=== PATIENT | female | born 1955 | race Caucasian/White ===

== ENCOUNTER 2017-04-25 10:49 | Inpatient (IN) | payer OTHER ==
[~2017-04-25] VITALS: Ht 177.8 cm; Wt 94.9 kg
--- NOTE | ~2017-04-25 | PR ---
[place], [place] PROGRESS NOTE NAME: EDUARD BATISTA UNIT #: [id number] ROOM: 409 DOCTOR: DEVON SHOOK DO BIRTHDATE: [birth year] DOS: 05/01/2017 SUBJECTIVE: The patient offers no complaints today other than discomfort in her IV site. She notes her appetite is good. Denies any nausea, vomiting, diarrhea or dyspnea. PHYSICAL EXAMINATION: VITAL SIGNS: Blood pressure is 120/69, pulse is 117, respirations 20, temperature is 98.6 degrees. GENERAL APPEARANCE: An obese female, awake, alert, no apparent distress. LUNGS: Clear to auscultation and percussion. HEART: With S1, S2, without murmur or heave. ABDOMEN: Soft, positive bowel sounds x 4. EXTREMITIES: No clubbing, cyanosis, no edema noted. LABORATORY DATA: Sodium is 129, potassium 3.5, chloride 91, CO2 25, BUN 19, creatinine 1.30, glucose 138, calcium is 8.6. WBCs are 5.2, hemoglobin 11.6, hematocrit 34.4, platelets are 242,000, a.m. cortisol from April 30 is pending. Cortrosyn stimulation test from today is pending. PROBLEM: 1. Hyponatremia, relatively stable of unclear etiology, negative workup today with several studies pending. Volume status currently appears to be satisfactory. Electrolytes are satisfactory. 2. Hypertension. Blood pressure is under fair control. 2. Hypothyroidism. RECOMMENDATIONS: Await results of pending studies. Continue to follow electrolytes. The creatinine slightly increased today. We will need to continue to monitor this as well. She does remain on Celebrex. If her creatinine rises further this would suggest discontinuation of Celebrex. Additionally, we will suggest discontinuation of Celebrex if her Cortrosyn stimulation test is not suggestive of adrenal insufficiency. I would also suggest avoiding hydrochlorothiazide in the future. [place], [place] PROGRESS NOTE NAME: EDUARD BATISTA UNIT #: [id number] ROOM: 409 DOCTOR: DEVON SHOOK DO BIRTHDATE: [birth year] DEVON SHOOK DO CM:JOLENE [id number] DEVON SHOOK DO 05/02/17 0604 interface
--- NOTE | ~2017-04-25 | PR ---
[place], [place] PROGRESS NOTE NAME: EDUARD BATISTA UNIT #: [id number] ROOM: 409 DOCTOR: CHADD MIDDLETON MD BIRTHDATE: [birth year] DOS: 05/03/2017 NEPHROLOGY FOLLOWUP NOTE SUBJECTIVE: The patient was seen and examined. She is awake and alert. She denies shortness of breath, nausea, vomiting or diarrhea. PHYSICAL EXAMINATION: VITAL SIGNS: Temperature 97.8, pulse 87, respiratory rate 18, blood pressure 167/97. HEENT: Shows no JVD. LUNGS: Clear. HEART: Normal S1, S2. No rub, thrill or gallop. ABDOMEN: Soft, nontender. There is no organomegaly. EXTREMITIES: Showed trace to 1+ edema. SKIN: Showed no rash. LABORATORY DATA: No chemistry was noted from today. She had a sodium yesterday of 131, potassium is 3.7, BUN 20, creatinine 1.15. Apparently, there is a cosyntropin stim test pending. I did note urine osmolality on 04/28/2017, it was 409 with a urine sodium of 138. IMPRESSION: 1. Hyponatremia. Etiology is not clear. Apparently, this is chronic. The patient has a stable sodium level. She appears to be on nonsteroidal antiinflammatory drugs. Would recommend discontinuing this, for this may be a contributor to syndrome of inappropriate antidiuretic hormone. She reported to me she previously was on a thiazide, this notably has been discontinued. She does have peripheral edema. Can consider a loop diuretic with fluid restriction. She should increase her protein intake. 2. Hypertension. As mentioned, thiazide should be avoided. Can try a regimen that she would tolerate with consideration to add an angiotensin-converting enzyme or an angiotensin receptor christiano. 3. History of rheumatoid arthritis. The patient is on chronic nonsteroidal antiinflammatory drugs as well as prednisone. 4. Anemia. Follow hemoglobin and hematocrit. [place], [place] PROGRESS NOTE NAME: EDUARD BATISTA UNIT #: [id number] ROOM: 409 DOCTOR: CHADD MIDDLETON MD BIRTHDATE: [birth year] CHADD MIDDLETON MD CM:PNTRANS [id number] CHADD MIDDLETON MD 05/03/172141 interface
--- NOTE | ~2017-04-25 | PR ---
[place], [place] PROGRESS NOTE NAME: EDUARD BATISTA UNIT #: [id number] ROOM: 409 DOCTOR: DEVON SHOOK DO BIRTHDATE: [birth year] DOS: 04/30/2017 SUBJECTIVE: The patient states that she is doing better today because her pain is improved. Notes her appetite is good. Denies any nausea, vomiting, diarrhea, orthopnea, PND or dyspnea. PHYSICAL EXAMINATION: VITAL SIGNS: Blood pressure is 157/95. Pulse is 100, respirations 20, temperature is 98.2 degrees Fahrenheit. GENERAL: Obese female, awake, alert and oriented x3, currently in no apparent distress. LUNGS: Clear to auscultation and percussion. HEART: Regular, without S4, S3 gallop, rub, murmur or heave noted. ABDOMEN: Soft, positive bowel sounds x 4 without CVA tenderness noted. EXTREMITIES: No clubbing, cyanosis or edema noted. LABORATORY DATA: Today, WBC ____, hemoglobin 11.8, hematocrit 35.0, platelets are 222,000. Sodium is 131, potassium 3.6, chloride 93, CO2 25, BUN of 14, creatinine 1.14, glucose is 115, calcium is 8.5. Cortrosyn stimulation test is pending. ASSESSMENT AND PLAN: Hyponatremia, improved from yesterday and of unclear etiology. A Cortrosyn stimulation test was attempted this morning, but after the baseline cortisol level was obtained, Cortrosyn was infused, but the IV did infiltrate and she did not receive all the Cortrosyn, as such followup levels were not obtained. Prior to his hypertension, blood pressure is adequately control ____ hypothyroidism. RECOMMENDATIONS: We will plan on repeating the Cortrosyn stimulation test tomorrow while awaiting results of this morning's cortisol level. Otherwise, to continue to follow her electrolytes. Pending results of the cortisol level or Cortrosyn stimulation test is not suggestive of adrenal insufficiency, would discontinue Celebrex. I would also suggest avoiding hydrochlorothiazide in the future. [place], [place] PROGRESS NOTE NAME: EDUARD BATISTA UNIT #: [id number] ROOM: 409 DOCTOR: DEVON SHOOK DO BIRTHDATE: [birth year] DEVON SHOOK DO CM:JOLENE [id number] DEVON SHOOK DO 04/30/174 interface
--- NOTE | ~2017-04-25 | CON ---
[place], [place] REPORT OF CONSULTATION NAME: EDUARD BATISTA [id number] UNIT #: [id number] ROOM: 409 DOCTOR: DEVON SHOOK DO BIRTHDATE: [birth year] DOS: 04/27/2017 REASON FOR CONSULTATION: Hyponatremia. HISTORY OF PRESENT ILLNESS: A 61-year-old female carries a prior history of hypertension, rheumatoid arthritis, GE reflux disease, DJD, presented to this institution due to recurrent falls of unclear etiology. She denied any chest pain, palpitations, presyncope/syncope in conjunction with her falls. She did unfortunately developed a pubic rami fracture with a right humeral fracture as a consequence of her fall and a right rib fracture, all of which are being treated in a nonsurgically fashion. She had acute kidney injury noted on admission labs with the creatinine of 1.56, but was treated with normal saline at 125 mL an hour from 04/25/2017 through the evening of 04/27/2017 when it was stopped with a subsequent improvement of her creatinine down to 1.03 on the , 0.96 as of yesterday, with a slight increase to 1.06 as of today. Note, baseline creatinine appears to be normal with values of approximately 1.0 noted extending back through 2013 and as recently as 11/02/2015. However, she was also noted to be hyponatremic on admission with a sodium of 130. Her sodium has remained stable through yesterday when it dropped slightly to 129 and again 129. Hyponatremia is apparently a chronic issue for this patient. She is aware of this diagnosis with values in the upper 120s-130 range noted during October 2015 as well as April of 2014. Past workup has included a p.m. cortisol level in March 2014 that was normal. Urine chemistries have never been performed until yesterday when the urine osmolality was noted to be 409 with a sodium of 138 and a potassium of 14.3. Thyroid functions have been checked in the past and have fluctuated but with persistent hyperthyroidism noted since March of 2014 but no hypothyroidism. Remainder of electrolytes and glucoses have all been satisfactory. The patient has been on a longstanding and stable dose of Celebrex 200 mg p.o. b.i.d. She has also been on a longstanding and stable dose of Micardis/HCT 40/12.5 every day. She has not been exposed to any potential medications that may have contributed to her chronic hyponatremia with possible addition of prednisone 7.5 mg daily, which she uses for rheumatoid arthritis as well. She reports a good appetite. No nausea, vomiting, diarrhea. No fevers, chills, rigors, or diaphoresis. No orthopnea, PND or dyspnea. She is experiencing some pain at present as noted above related to her fractures. She denies any edema. PAST MEDICAL HISTORY: See above. ALLERGIES: LISTED TO SULFA, CODEINE. CURRENT MEDICATIONS: Prednisone 7.5 mg p.o. every day, beginning tomorrow; Celebrex 200 mg p.o. b.i.d.; 50 mg p.o. b.i.d.; Toprol-XL 50 mg p.o. daily; Prilosec 40 mg p.o. every day; multivitamin 1 p.o. every day; Claritin 10 mg p.o. every day; Flexeril 2.5 mg t.i.d. q.8h. p.r.n. SOCIAL HISTORY: She resides at home. FAMILY HISTORY: Noncontributory. [place], [place] REPORT OF CONSULTATION NAME: EDUARD BATISTA UNIT #: [id number] ROOM: 409 DOCTOR: DEVON SHOOK DO BIRTHDATE: [birth year] REVIEW OF SYSTEMS: See HPI. Full 10-point was performed, and otherwise unremarkable except as noted in the HPI. PHYSICAL EXAMINATION: VITAL SIGNS: Blood pressure is 154/90, pulse is 100, respirations 18, temperature 98.7 degrees. GENERAL APPEARANCE: An obese female, awake, oriented x 3, in no apparent distress. HEENT: Head is normocephalic. Eyes, conjunctivae pink. Oral mucosa is pink and moist. NECK: There is no carotid bruits, thyromegaly, adenopathy or JVD appreciated. LUNGS: Clear to auscultation and percussion. CARDIOVASCULAR: Heart is regular with an S3, gallop, or rub. No murmurs appreciated. ABDOMEN: Soft, positive bowel sounds x 4, nontender, without CVA tenderness. No rebound, guarding or rigidity noted. No abdominal or flank bruits appreciated. NEUROLOGIC: Examination is grossly nonfocal. EXTREMITIES: No clubbing, cyanosis or edema noted. Pulses are +2 bilateral radial as well as dorsalis pedis. SKIN: No rashes, lesions, or petechiae appreciated. LABORATORY DATA: From today, sodium is 129, potassium 3.5, chloride 97, CO2 of 22, BUN of 12, creatinine 1.06, glucose is 127, phosphorus 3.2, mag is 1.7, calcium is 8.2, albumin is 2.6, corrected calcium is 9.3. Total protein 6.3, ALT is 20, AST is 20, alkaline phosphatase is 94. Troponin 0.7. TSH is 0.150, free T4 is 1.48. WBC is 6.4, hemoglobin , hematocrit 34.6, platelets are 216,000. ASSESSMENT AND PLAN: 1. Hyponatremia, longstanding in nature of unclear etiology. It is possible she has adrenal insufficiency, which is in the setting of chronic steroid use. In addition, the possibility of this is related to use of hydrochlorothiazide-type diuretics as well as NSAIDs for management of her hypertension and rheumatoid arthritis respectively. Note, she has not received her hydrochlorothiazide-type diuretics during the course of this admission. 2. Hypertension. Blood pressure is satisfactorily controlled. 3. Hyperthyroidism. RECOMMENDATIONS: Defer treatment of hyperthyroidism to the primary service. Follow electrolytes closely. Check a cortisone stimulation test for tomorrow morning prior to the initiation of steroid therapy to look for adrenal insufficiency. If negative, would suggest discontinuation of Celebrex and possible discontinuation of hydrochlorothiazide. Otherwise, would not pursue additional treatments given only a mild impairment in her sodium balance and her relatively good tolerance of her mildly low salt levels. Thank you for allowing us to participate in the care of this patient. [place], [place] REPORT OF CONSULTATION NAME: EDUARD BATISTA Sean UNIT #: [id number] ROOM: 409 DOCTOR: DEVON SHOOK DO BIRTHDATE: [birth year] DEVON SHOOK DO CM:CONSTR:REPORT OF CONSULTATION 1309 04/29/17 5174 interface
[~2017-04-25 10:49] MED LIST: ANAPROX DS550 MG PO; AUGMENTIN 500 M1 TAB PO; CALCIUM 600 + V1 TAB PO; CELEBREX200 MG PO; CELECOXIB200 MG PO; CHILDREN'S CHEW1 CT1 PO; CIPRO500 MG PO; CLARITIN10 MG PO; CYCLOBENZAPRINE5 M3 PO; DETROL LA4 MG PO; DOXYCYCLINE100 MG PO; ENBREL50 MG/1 ML SQ; HUMALOG100 U/ML SC; HYDR12.5C PO; Lovenox40 MG/0.4 SC; MACROBID100 M1 PO; MAGNESIUM OXID400 MG PO; MAPAP325 MG PO; MEDROL DOSEPAK4 MG PO; METOPROLOL SUCC50 M1 PO; MICARDIS HCT 121 TA2 PO; MUCINEX600 MG PO; NEXIUM40 MG PO; OMEPRAZOLE40 MG PO; PREDNISONE10 MG PO; PREDNISONE5 MG PO; ROBITUSSIN DM 105 ML PO; ROCEPHIN1 GM/50 M1 IV; SKELAXIN800 M1 PO; VIBRA-TAB100 M1 PO; XOPENEX0.63 MG NEB
[2017-04-25 10:52] VITALS: BP 132/86
[2017-04-25 12:00] VITALS: BP 147/84
[2017-04-25 17:03] VITALS: BP 157/71
[2017-04-25 17:50] LABS: BASO % 0.4 % (0.0-1.0); EOS # 0.1 10*3/uL (0.0-0.4); EOS % 0.6 % (1.0-4.0); HEMATOCRIT 39.8 % (37.0-47.0); HEMOGLOBIN 13.1 g/dl (12.0-16.0); LYMPH # 1.2 10*3/uL (1.3-4.4); LYMPH % 12.8 % (27.0-41.0); MEAN CELL VOLUME 89.4 fl (81.0-99.0); MEAN CORPUSCULAR HGB 29.4 pg (27.0-31.0); MEAN CORPUSCULAR HGB CONC 32.9 g/dl (33.0-37.0); MEAN PLATELET VOLUME 9.1 fl (9.6-12.3); MONO # 0.8 10*3/uL (0.1-1.0); MONO % 9.3 % (3.0-9.0); NEUT # 6.9 10*3/uL (2.3-7.9); NEUT % 76.3 % (47.0-73.0); PLATELET COUNT AUTOMATED 228 10*3/uL (130-400); RED BLOOD COUNT 4.45 10*6/uL (4.10-5.10); RED CELL DISTRI WIDTH 14.7 % (0-14.5); WHITE BLOOD COUNT 9.1 10*3/uL (4.8-10.8)
[2017-04-25 17:58] LABS: INTERNATIONAL NORM RATIO 0.9 (2.0-3.5)
[2017-04-25 18:06] LABS: ALBUMIN 3.4 gm/dl (3.1-4.5); ALKALINE PHOSPHATASE 108 U/L (45-117); BUN 20 mg/dl (7-24); CHLORIDE 94 mmol/L (98-107); CKMB 0.8 ng/ml (0.5-3.6); CPK 432 U/L (26-192); CREATININE 1.56 mg/dL (0.55-1.02); LDH 218 U/L (84-246); LIPASE 242 U/L (73-393); POTASSIUM 3.5 mmol/L (3.5-5.1); SGOT/AST 17 IU/L (3-35); SGPT/ALT 27 U/L (12-78); SODIUM 130 mmol/L (136-145); TOTAL PROTEIN 7.5 gm/dL (6.4-8.2); TROPONIN I 0.023 ng/ml (<0.045)
[2017-04-25 18:10] LABS: ETHYL ALCOHOL < 3.0 mg/dl (<3)
[2017-04-25 18:58] LABS: BILIRUBIN NEGATIVE (NEGATIVE); BLOOD NEGATIVE (NEGATIVE); CLARITY CLEAR (CLEAR); COLOR YELLOW (YELLOW); GLUCOSE NEGATIVE (NEGATIVE); KETONE NEGATIVE (NEGATIVE); LEUKO ESTERASE NEGATIVE (NEGATIVE); NITRITE NEGATIVE (NEGATIVE); PH 6.5 (5.0-9.0); SPECIFIC GRAVITY <= 1.005 (1.005-1.030); UROBILINOGEN 0.2 E.U./dl (0.2-1.0)
[2017-04-25 19:05] LABS: BACTERIA TRACE
[2017-04-25 19:06] LABS: URINE AMPHETAMINES < 1000 (1000ng/ml); URINE BARBITURATES < 200 (200ng/ml); URINE BENZODIAZEPINES < 200 (200ng/ml); URINE CANNABINOIDS (THC) < 50 (50ng/ml); URINE COCAINE < 300 (300ng/ml); URINE METHADONE < 300 (300ng/ml); URINE OPIATES < 300 (300ng/ml)
[2017-04-25 19:07] LABS: URINE PHENCYCLIDINE < 25 (25ng/ml)
[2017-04-25 19:25] VITALS: BP 136/84
[2017-04-25 20:00] VITALS: BP 132/84
[2017-04-25 21:30] VITALS: BP 147/84
[2017-04-26] VITALS: BP 140/80
[2017-04-26 04:00] VITALS: BP 140/80
[2017-04-26 06:12] LABS: BASO % 0.6 % (0.0-1.0); EOS # 0.1 10*3/uL (0.0-0.4); EOS % 1.2 % (1.0-4.0); HEMATOCRIT 37.2 % (37.0-47.0); HEMOGLOBIN 12.4 g/dl (12.0-16.0); LYMPH % 14.7 % (27.0-41.0); MEAN CELL VOLUME 88.8 fl (81.0-99.0); MEAN CORPUSCULAR HGB 29.6 pg (27.0-31.0); MEAN CORPUSCULAR HGB CONC 33.3 g/dl (33.0-37.0); MEAN PLATELET VOLUME 9.2 fl (9.6-12.3); MONO # 0.9 10*3/uL (0.1-1.0); MONO % 12.4 % (3.0-9.0); NEUT # 4.9 10*3/uL (2.3-7.9); NEUT % 70.7 % (47.0-73.0); PLATELET COUNT AUTOMATED 203 10*3/uL (130-400); RED BLOOD COUNT 4.19 10*6/uL (4.10-5.10); RED CELL DISTRI WIDTH 14.7 % (0-14.5); WHITE BLOOD COUNT 6.9 10*3/uL (4.8-10.8)
[2017-04-26 06:46] LABS: CREATININE 1.21 mg/dL (0.55-1.02); MAGNESIUM 1.8 mg/dL (1.5-2.1); PHOSPHOROUS 3.4 mg/dL (2.5-4.9); POTASSIUM 3.8 mmol/L (3.5-5.1)
[2017-04-26 06:49] LABS: ACT PARTIAL THROMBO TIME 21.7 SECONDS (20.8-31.5); INTERNATIONAL NORM RATIO 0.9 (2.0-3.5)
[2017-04-26 06:52] LABS: THYROID STIM HORMONE (HS) 0.106 uIU/ml (0.358-4.75)
[2017-04-26 08:32] LABS: VITAMIN D, 25-HYDROXY 31.8 ng/mL (30-100)
[2017-04-26 12:00] VITALS: BP 131/94
[2017-04-26 16:00] VITALS: BP 152/81
[2017-04-26 20:00] VITALS: BP 152/47
[2017-04-27] VITALS: BP 110/48
[2017-04-27 06:15] LABS: BASO % 0.7 % (0.0-1.0); EOS # 0.2 10*3/uL (0.0-0.4); EOS % 2.6 % (1.0-4.0); HEMATOCRIT 34.3 % (37.0-47.0); HEMOGLOBIN 11.3 g/dl (12.0-16.0); LYMPH # 1.2 10*3/uL (1.3-4.4); LYMPH % 19.7 % (27.0-41.0); MEAN CELL VOLUME 89.1 fl (81.0-99.0); MEAN CORPUSCULAR HGB 29.4 pg (27.0-31.0); MEAN CORPUSCULAR HGB CONC 32.9 g/dl (33.0-37.0); MEAN PLATELET VOLUME 9.6 fl (9.6-12.3); MONO # 0.8 10*3/uL (0.1-1.0); MONO % 13.3 % (3.0-9.0); NEUT # 3.9 10*3/uL (2.3-7.9); NEUT % 63.4 % (47.0-73.0); PLATELET COUNT AUTOMATED 200 10*3/uL (130-400); RED BLOOD COUNT 3.85 10*6/uL (4.10-5.10); RED CELL DISTRI WIDTH 14.8 % (0-14.5); WHITE BLOOD COUNT 6.1 10*3/uL (4.8-10.8)
[2017-04-27 06:51] LABS: BUN 10 mg/dl (7-24); CHLORIDE 99 mmol/L (98-107); CREATININE 1.03 mg/dL (0.55-1.02); FREE T4 1.35 ng/dl (0.76-1.46); POTASSIUM 3.6 mmol/L (3.5-5.1); SODIUM 130 mmol/L (136-145)
[2017-04-27 08:00] VITALS: BP 158/62
[2017-04-27 16:00] VITALS: BP 162/108
[2017-04-27 16:16] VITALS: BP 162/80
[2017-04-27 20:00] VITALS: BP 161/111; BP 166/84
[2017-04-28] VITALS: BP 148/78
[2017-04-28 06:14] LABS: BASO % 0.5 % (0.0-1.0); EOS # 0.2 10*3/uL (0.0-0.4); EOS % 2.3 % (1.0-4.0); HEMATOCRIT 36.5 % (37.0-47.0); HEMOGLOBIN 12.2 g/dl (12.0-16.0); LYMPH # 1.1 10*3/uL (1.3-4.4); LYMPH % 16.7 % (27.0-41.0); MEAN CELL VOLUME 90.6 fl (81.0-99.0); MEAN CORPUSCULAR HGB 30.3 pg (27.0-31.0); MEAN CORPUSCULAR HGB CONC 33.4 g/dl (33.0-37.0); MEAN PLATELET VOLUME 9.9 fl (9.6-12.3); MONO # 0.9 10*3/uL (0.1-1.0); MONO % 13.5 % (3.0-9.0); NEUT # 4.3 10*3/uL (2.3-7.9); NEUT % 66.5 % (47.0-73.0); PLATELET COUNT AUTOMATED 208 10*3/uL (130-400); RED BLOOD COUNT 4.03 10*6/uL (4.10-5.10); RED CELL DISTRI WIDTH 14.7 % (0-14.5); WHITE BLOOD COUNT 6.5 10*3/uL (4.8-10.8)
[2017-04-28 06:30] LABS: ALBUMIN 2.6 gm/dl (3.1-4.5); BUN 9 mg/dl (7-24); CHLORIDE 99 mmol/L (98-107); CREATININE 0.96 mg/dL (0.55-1.02); MAGNESIUM 1.9 mg/dL (1.5-2.1); POTASSIUM 3.7 mmol/L (3.5-5.1); SGOT/AST 24 IU/L (3-35); SGPT/ALT 20 U/L (12-78); SODIUM 129 mmol/L (136-145); TOTAL PROTEIN 6.3 gm/dL (6.4-8.2)
[2017-04-28 06:31] LABS: ALKALINE PHOSPHATASE 87 U/L (45-117)
[2017-04-28 08:00] VITALS: BP 173/99
[2017-04-28 16:00] VITALS: BP 163/93
[2017-04-28 20:24] VITALS: BP 107/90
[2017-04-29 06:59] LABS: BASO % 0.6 % (0.0-1.0); EOS # 0.1 10*3/uL (0.0-0.4); HEMATOCRIT 34.6 % (37.0-47.0); HEMOGLOBIN 11.7 g/dl (12.0-16.0); LYMPH # 1.1 10*3/uL (1.3-4.4); MEAN CELL VOLUME 88.5 fl (81.0-99.0); MEAN CORPUSCULAR HGB 29.9 pg (27.0-31.0); MEAN CORPUSCULAR HGB CONC 33.8 g/dl (33.0-37.0); MEAN PLATELET VOLUME 9.4 fl (9.6-12.3); MONO # 1.1 10*3/uL (0.1-1.0); MONO % 16.5 % (3.0-9.0); NEUT % 63.6 % (47.0-73.0); PLATELET COUNT AUTOMATED 216 10*3/uL (130-400); RED BLOOD COUNT 3.91 10*6/uL (4.10-5.10); RED CELL DISTRI WIDTH 14.8 % (0-14.5); WHITE BLOOD COUNT 6.4 10*3/uL (4.8-10.8)
[2017-04-29 07:13] LABS: ALBUMIN 2.6 gm/dl (3.1-4.5); BUN 12 mg/dl (7-24); CHLORIDE 97 mmol/L (98-107); CREATININE 1.06 mg/dL (0.55-1.02); FREE T4 1.48 ng/dl (0.76-1.46); MAGNESIUM 1.7 mg/dL (1.5-2.1); PHOSPHOROUS 3.2 mg/dL (2.5-4.9); POTASSIUM 3.5 mmol/L (3.5-5.1); SGOT/AST 20 IU/L (3-35); SGPT/ALT 20 U/L (12-78); SODIUM 129 mmol/L (136-145); TOTAL PROTEIN 6.3 gm/dL (6.4-8.2)
[2017-04-29 07:18] LABS: ALKALINE PHOSPHATASE 94 U/L (45-117)
[2017-04-29 08:00] VITALS: BP 154/90
[2017-04-29 16:00] VITALS: BP 157/98
[2017-04-29 20:33] VITALS: BP 159/99
[2017-04-30] VITALS: BP 153/82
[2017-04-30 08:00] VITALS: BP 157/95
[2017-04-30 09:05] LABS: BASO % 0.8 % (0.0-1.0); EOS # 0.2 10*3/uL (0.0-0.4); EOS % 3.1 % (1.0-4.0); HEMOGLOBIN 11.8 g/dl (12.0-16.0); LYMPH # 0.9 10*3/uL (1.3-4.4); LYMPH % 18.5 % (27.0-41.0); MEAN CELL VOLUME 87.9 fl (81.0-99.0); MEAN CORPUSCULAR HGB 29.6 pg (27.0-31.0); MEAN CORPUSCULAR HGB CONC 33.7 g/dl (33.0-37.0); MEAN PLATELET VOLUME 9.2 fl (9.6-12.3); MONO # 0.6 10*3/uL (0.1-1.0); MONO % 11.9 % (3.0-9.0); NEUT # 3.1 10*3/uL (2.3-7.9); NEUT % 65.3 % (47.0-73.0); PLATELET COUNT AUTOMATED 222 10*3/uL (130-400); RED BLOOD COUNT 3.98 10*6/uL (4.10-5.10); RED CELL DISTRI WIDTH 14.9 % (0-14.5); WHITE BLOOD COUNT 4.8 10*3/uL (4.8-10.8)
[2017-04-30 09:17] LABS: CREATININE 1.14 mg/dL (0.55-1.02); POTASSIUM 3.6 mmol/L (3.5-5.1)
[2017-04-30 16:00] VITALS: BP 128/69
[2017-04-30 20:03] VITALS: BP 149/88
[2017-05-01] VITALS: BP 143/83
[2017-05-01 08:00] VITALS: BP 135/80
[2017-05-01 08:38] LABS: BASO % 0.8 % (0.0-1.0); EOS # 0.2 10*3/uL (0.0-0.4); EOS % 3.1 % (1.0-4.0); HEMATOCRIT 34.4 % (37.0-47.0); HEMOGLOBIN 11.6 g/dl (12.0-16.0); LYMPH # 0.9 10*3/uL (1.3-4.4); LYMPH % 17.8 % (27.0-41.0); MEAN CELL VOLUME 87.8 fl (81.0-99.0); MEAN CORPUSCULAR HGB 29.6 pg (27.0-31.0); MEAN CORPUSCULAR HGB CONC 33.7 g/dl (33.0-37.0); MEAN PLATELET VOLUME 9.4 fl (9.6-12.3); MONO # 0.6 10*3/uL (0.1-1.0); MONO % 11.9 % (3.0-9.0); NEUT # 3.5 10*3/uL (2.3-7.9); PLATELET COUNT AUTOMATED 242 10*3/uL (130-400); RED BLOOD COUNT 3.92 10*6/uL (4.10-5.10); RED CELL DISTRI WIDTH 15.2 % (0-14.5); WHITE BLOOD COUNT 5.2 10*3/uL (4.8-10.8)
[2017-05-01 09:05] LABS: CREATININE 1.3 mg/dL (0.55-1.02); POTASSIUM 3.5 mmol/L (3.5-5.1)
[2017-05-01 16:00] VITALS: BP 134/80
[2017-05-02] VITALS: BP 130/80
[2017-05-02 06:11] LABS: BASO % 0.2 % (0.0-1.0); EOS # 0.1 10*3/uL (0.0-0.4); EOS % 2.6 % (1.0-4.0); HEMATOCRIT 30.7 % (37.0-47.0); HEMOGLOBIN 10.4 g/dl (12.0-16.0); LYMPH # 1.1 10*3/uL (1.3-4.4); LYMPH % 25.1 % (27.0-41.0); MEAN CELL VOLUME 88.5 fl (81.0-99.0); MEAN CORPUSCULAR HGB CONC 33.9 g/dl (33.0-37.0); MEAN PLATELET VOLUME 9.6 fl (9.6-12.3); MONO # 0.7 10*3/uL (0.1-1.0); MONO % 16.4 % (3.0-9.0); NEUT # 2.4 10*3/uL (2.3-7.9); NEUT % 55.2 % (47.0-73.0); PLATELET COUNT AUTOMATED 249 10*3/uL (130-400); RED BLOOD COUNT 3.47 10*6/uL (4.10-5.10); RED CELL DISTRI WIDTH 14.8 % (0-14.5); WHITE BLOOD COUNT 4.3 10*3/uL (4.8-10.8)
[2017-05-02 06:36] LABS: CREATININE 1.15 mg/dL (0.55-1.02); POTASSIUM 3.7 mmol/L (3.5-5.1)
[2017-05-02 08:00] VITALS: BP 150/82
[2017-05-02 16:00] VITALS: BP 153/89
[2017-05-02 16:10] LABS: CORTISOL #2 22.6 ug/dL (Not Estab.)
[2017-05-03 08:00] VITALS: BP 167/97
[2017-05-03 20:00] VITALS: BP 160/82; BP 178/85
[2017-05-04] VITALS: BP 159/79
[2017-05-04 06:17] LABS: BUN 17 mg/dl (7-24); CHLORIDE 100 mmol/L (98-107); CREATININE 1.04 mg/dL (0.55-1.02); POTASSIUM 3.5 mmol/L (3.5-5.1); SODIUM 134 mmol/L (136-145)
[2017-05-04 08:00] VITALS: BP 162/98
[2017-05-04 12:00] VITALS: BP 160/90
[2017-05-04 16:00] VITALS: BP 157/96
[2017-05-04 20:00] VITALS: BP 164/100
[2017-05-04 22:30] VITALS: BP 164/108
[2017-05-05] VITALS: BP 165/109
[2017-05-05 06:27] LABS: BASO # 0.1 10*3/uL (0.0-0.1); BASO % 0.8 % (0.0-1.0); EOS # 0.2 10*3/uL (0.0-0.4); EOS % 2.8 % (1.0-4.0); HEMATOCRIT 33.8 % (37.0-47.0); HEMOGLOBIN 11.2 g/dl (12.0-16.0); LYMPH # 1.5 10*3/uL (1.3-4.4); LYMPH % 23.2 % (27.0-41.0); MEAN CELL VOLUME 88.5 fl (81.0-99.0); MEAN CORPUSCULAR HGB 29.3 pg (27.0-31.0); MEAN CORPUSCULAR HGB CONC 33.1 g/dl (33.0-37.0); MONO # 0.8 10*3/uL (0.1-1.0); MONO % 11.6 % (3.0-9.0); NEUT % 61.1 % (47.0-73.0); PLATELET COUNT AUTOMATED 332 10*3/uL (130-400); RED BLOOD COUNT 3.82 10*6/uL (4.10-5.10); RED CELL DISTRI WIDTH 14.9 % (0-14.5); WHITE BLOOD COUNT 6.5 10*3/uL (4.8-10.8)
[2017-05-05 07:56] LABS: CORTISOL BASELINE 14.4
[2017-05-05 07:59] LABS: CORTISOL #3 26.2
[2017-05-05 08:00] VITALS: BP 180/90
[2017-05-05] MEDS ORDERED: ANIMAL SHAPES1 EAC2 PO (09:08)
[2017-05-05] MEDS ORDERED: METOPROLOL SUCC50 M1 PO (11:06)
== END 2017-05-05 11:33 | disposition other institution (70) | DRG 535 ==
LOC: ED 10:49 → EDHOLD 19:19 → 4E 19:19
PROVIDERS: Emergency Medicine; Family Medicine; Internal Medicine; Internal Medicine Nephrology; Physician Assistant; ADMIT Internal Medicine
DX: S32.592A Other specified fracture of left pubis, initial encounter for closed fracture (principal); N17.0 Acute kidney failure with tubular necrosis; G93.41 Metabolic encephalopathy; R65.10 Systemic inflammatory response syndrome (SIRS) of non-infectious origin without acute organ dysfunction; E44.1 Mild protein-calorie malnutrition; E87.1 Hypo-osmolality and hyponatremia; E86.0 Dehydration; S42.201A Unspecified fracture of upper end of right humerus, initial encounter for closed fracture; S22.31XA Fracture of one rib, right side, initial encounter for closed fracture; D64.9 Anemia, unspecified; M48.06 Spinal stenosis, lumbar region; R73.9 Hyperglycemia, unspecified; I10 Essential (primary) hypertension; W18.30XA Fall on same level, unspecified, initial encounter; K21.9 Gastro-esophageal reflux disease without esophagitis; M06.9 Rheumatoid arthritis, unspecified; M81.0 Age-related osteoporosis without current pathological fracture; R29.6 Repeated falls; F17.200 Nicotine dependence, unspecified, uncomplicated; Z68.36 Body mass index [BMI] 36.0-36.9, adult; Y93.89 Activity, other specified; Y99.8 Other external cause status; Z88.2 Allergy status to sulfonamides; Z88.5 Allergy status to narcotic agent; Z82.61 Family history of arthritis; Z79.899 Other long term (current) drug therapy; Z87.81 Personal history of (healed) traumatic fracture; Y92.89 Other specified places as the place of occurrence of the external cause

== ENCOUNTER → 2017-06-09 | Outpatient (CLI) | payer OTHER ==
[~2017-06-09] MED LIST changes: +ANIMAL SHAPES1 EAC2 PO
== END | disposition home or self-care (01) ==
LOC: ORTHO 03:14
DX: S32.591D Other specified fracture of right pubis, subsequent encounter for fracture with routine healing (principal); S42.291D Other displaced fracture of upper end of right humerus, subsequent encounter for fracture with routine healing; M19.012 Primary osteoarthritis, left shoulder; X58.XXXD Exposure to other specified factors, subsequent encounter

== ENCOUNTER 2017-06-19 21:21 | Emergency (ER) | payer OTHER ==
[~2017-06-19] VITALS: Ht 167.6 cm; Wt 90.3 kg
== END 2017-06-20 00:50 | disposition home or self-care (01) ==
LOC: ED 21:21
DX: S96.911A Strain of unspecified muscle and tendon at ankle and foot level, right foot, initial encounter (principal); S96.912A Strain of unspecified muscle and tendon at ankle and foot level, left foot, initial encounter; S41.111A Laceration without foreign body of right upper arm, initial encounter; S51.011A Laceration without foreign body of right elbow, initial encounter; M25.462 Effusion, left knee; I10 Essential (primary) hypertension; K21.9 Gastro-esophageal reflux disease without esophagitis; M81.0 Age-related osteoporosis without current pathological fracture; F17.200 Nicotine dependence, unspecified, uncomplicated; Z88.2 Allergy status to sulfonamides; Z88.6 Allergy status to analgesic agent; Z79.899 Other long term (current) drug therapy; W10.9XXA Fall (on) (from) unspecified stairs and steps, initial encounter; Y93.89 Activity, other specified; Y92.009 Unspecified place in unspecified non-institutional (private) residence as the place of occurrence of the external cause; Y99.8 Other external cause status

== ENCOUNTER 2017-10-09 16:03 | Inpatient (IN) | payer SELFPAY ==
[~2017-10-09] VITALS: Ht 177.8 cm; Wt 95.8 kg
[2017-10-09 16:03] VITALS: BP 107/60
[2017-10-09 17:13] VITALS: BP 107/72
[2017-10-09 17:15] LABS: BASO % 0.6 % (0.0-1.0); EOS % 0.3 % (1.0-4.0); HEMATOCRIT 39.7 % (37.0-47.0); HEMOGLOBIN 13.5 g/dl (12.0-16.0); LYMPH # 1.1 10*3/uL (1.3-4.4); LYMPH % 16.9 % (27.0-41.0); MEAN CELL VOLUME 82.7 fl (81.0-99.0); MEAN CORPUSCULAR HGB 28.1 pg (27.0-31.0); MEAN PLATELET VOLUME 9.7 fl (9.6-12.3); MONO # 1.2 10*3/uL (0.1-1.0); MONO % 17.4 % (3.0-9.0); NEUT # 4.3 10*3/uL (2.3-7.9); NEUT % 64.2 % (47.0-73.0); PLATELET COUNT AUTOMATED 164 10*3/uL (130-400); RED CELL DISTRI WIDTH 15.6 % (0-14.5); WHITE BLOOD COUNT 6.6 10*3/uL (4.8-10.8)
[2017-10-09 17:27] LABS: ACT PARTIAL THROMBO TIME 22.7 SECONDS (20.8-31.5); INTERNATIONAL NORM RATIO 0.9 (2.0-3.5)
[2017-10-09 17:34] LABS: ALBUMIN 3.3 gm/dl (3.1-4.5); ALKALINE PHOSPHATASE 131 U/L (45-117); BUN 18 mg/dl (7-24); CHLORIDE 86 mmol/L (98-107); CREATININE 1.74 mg/dL (0.55-1.02); LIPASE 97 U/L (73-393); SGOT/AST 21 IU/L (3-35); SGPT/ALT 23 U/L (12-78); SODIUM 125 mmol/L (136-145); TOTAL PROTEIN 7.6 gm/dL (6.4-8.2)
[2017-10-09 17:36] LABS: TROPONIN I < 0.015 ng/ml (<0.045)
[2017-10-09 18:00] VITALS: BP 148/56
[2017-10-09 18:36] LABS: BILIRUBIN NEGATIVE (NEGATIVE); BLOOD 1+ (NEGATIVE); CLARITY CLOUDY (CLEAR); COLOR YELLOW (YELLOW); GLUCOSE NEGATIVE (NEGATIVE); KETONE NEGATIVE (NEGATIVE); LEUKO ESTERASE 3+ (NEGATIVE); NITRITE POSITIVE (NEGATIVE); UROBILINOGEN 0.2 E.U./dl (0.2-1.0)
[2017-10-09 18:41] LABS: BACTERIA 4+
[2017-10-09 19:25] VITALS: BP 142/60
[2017-10-09 20:00] VITALS: BP 142/60
[2017-10-10] VITALS: BP 149/61
[2017-10-10 06:19] LABS: HEMATOCRIT 33.7 % (37.0-47.0); HEMOGLOBIN 11.7 g/dl (12.0-16.0); MEAN CELL VOLUME 81.6 fl (81.0-99.0); MEAN CORPUSCULAR HGB 28.3 pg (27.0-31.0); MEAN CORPUSCULAR HGB CONC 34.7 g/dl (33.0-37.0); MEAN PLATELET VOLUME 9.8 fl (9.6-12.3); PLATELET COUNT AUTOMATED 144 10*3/uL (130-400); RED BLOOD COUNT 4.13 10*6/uL (4.10-5.10); RED CELL DISTRI WIDTH 15.8 % (0-14.5); WHITE BLOOD COUNT 4.1 10*3/uL (4.8-10.8)
[2017-10-10 06:32] LABS: CREATININE 1.55 mg/dL (0.55-1.02); PHOSPHOROUS 3.6 mg/dL (2.5-4.9); POTASSIUM 3.9 mmol/L (3.5-5.1)
[2017-10-10 06:38] LABS: THYROID STIM HORMONE (HS) 0.029 uIU/ml (0.358-4.75)
[2017-10-10 06:57] LABS: BASOPHILS 1 % (0-1); PLATELET SUFFICIENCY NORMAL (NORMAL); TOTAL CELLS COUNTED 100 #CELLS
[2017-10-10 08:00] VITALS: BP 154/79
[2017-10-10 09:41] LABS: VITAMIN D, 25-HYDROXY 19.3 ng/mL (30-100)
[2017-10-10] MEDS ORDERED: TOPROL XL50 M1 PO (10:04)
[2017-10-10] MEDS ORDERED: CLARITIN10 MG PO (10:06)
[2017-10-10 12:00] VITALS: BP 148/90
[2017-10-10 16:00] VITALS: BP 146/77
== END 2017-10-10 19:48 | disposition short-term general hospital (02) | DRG 871 ==
LOC: ED 16:03 → 4E 18:21 → EDHOLD 18:21 → 4E 18:32
PROVIDERS: Emergency Medicine; Student in an Organized Health Care Education/Training Program
DX: A41.9 Sepsis, unspecified organism (principal); G93.41 Metabolic encephalopathy; N17.0 Acute kidney failure with tubular necrosis; E87.1 Hypo-osmolality and hyponatremia; M87.00 Idiopathic aseptic necrosis of unspecified bone; E83.41 Hypermagnesemia; N39.0 Urinary tract infection, site not specified; S89.92XA Unspecified injury of left lower leg, initial encounter; R55 Syncope and collapse; W18.39XA Other fall on same level, initial encounter; R73.9 Hyperglycemia, unspecified; I10 Essential (primary) hypertension; S02.2XXA Fracture of nasal bones, initial encounter for closed fracture; M06.9 Rheumatoid arthritis, unspecified; K21.9 Gastro-esophageal reflux disease without esophagitis; N32.81 Overactive bladder; M81.0 Age-related osteoporosis without current pathological fracture; Z88.5 Allergy status to narcotic agent; Z88.2 Allergy status to sulfonamides; Z79.899 Other long term (current) drug therapy; Z87.81 Personal history of (healed) traumatic fracture; Z82.61 Family history of arthritis; Y93.89 Activity, other specified; Y92.098 Other place in other non-institutional residence as the place of occurrence of the external cause; Y99.8 Other external cause status